=== PATIENT | male | born 1975 | race Caucasian/White ===

== ENCOUNTER 2021-07-09 15:54 | Emergency (ER) | payer BC ==
[~2021-07-09] VITALS: Ht 182.9 cm; Wt 104.5 kg
[2021-07-09 17:46] VITALS: BP 164/98
== END 2021-07-09 19:05 | disposition home or self-care (01) ==
LOC: M ED 15:54
DX: S20.219A Contusion of unspecified front wall of thorax, initial encounter (principal); S70.02XA Contusion of left hip, initial encounter; S50.02XA Contusion of left elbow, initial encounter; W11.XXXA Fall on and from ladder, initial encounter; Y92.9 Unspecified place or not applicable; Y93.9 Activity, unspecified; Y99.9 Unspecified external cause status